=== PATIENT | female | born 1940 | race Caucasian/White ===

== ENCOUNTER 2016-12-04 16:40 | Emergency (ER) | payer MEDICARE, MEDICAID ==
[~2016-12-04 16:40] MED LIST: FELO10TA34 PO; PRO20 PO; [UNRECOGNIZED DRUG - CODE] PO
[2016-12-04 16:42] VITALS: BP 164/92; PULSE 79; RESP 24; O2SAT 99
--- NOTE | 2016-12-04 17:16 | DRSVH ---
PROCEDURE: X-RAY CHEST ONE VIEW, PORTABLE ([id number]) INDICATIONS: 76 year-old female with chest pain. TECHNIQUE: One view of the chest was acquired. COMPARISON: [facility], CR, XR CHEST 1VW (PORTABLE), 06/11/2016, 12:42. [facility], CR, XR CHEST 1VW (PORTABLE), 02/08/2016, 17:26. [facility], CR, CHEST 2VW, 10/07, 13:13. FINDINGS: Surgical changes and devices: None. Lungs and pleura: No pleural effusions or pneumothorax. Lungs are clear. Mediastinum: Mediastinal contours appear normal. Heart size is normal. There is aortic atheroscler osis. Bones and chest wall: No suspicious bony lesions. Overlying soft tissues appear unremarkable. IMPRESSION: No acute cardiopulmonary disease. Dictated by: Harley Redd M.D. on 12/04/2016 at 17:13 Approved by: Harley Redd M.D. on 12/04/2016 at 17:14
[2016-12-04 17:22] LABS: BASOPHILS % (AUTO) 0.4 % (0-3); EOSINOPHILS % (AUTO) 0.3 % (0-5); NEUTROPHILS % (AUTO) 60.9 % (40-74); Platelet Count 286 bil/L (150-400)
--- NOTE | 2016-12-04 17:29 | ED.REPORT ---
HPI-General Illness Date of Service Dec 04, 2016 ED Provider: Fran Weiner DO The patient is a 76 year old female with history of hypertension and depression , who presents to the emergency department complaining of feeling unwell. Her symptoms began about 6 days ago. She has experienced intermittent mild chest pains that last for a second, chills, and tremors. The patient is having a difficult time describing her symptoms. The patient was recently evaluated for episodes of dizziness, leg tingling, and confusion that last approximately 1 minute. She was seen by Dr. Stuart and had a normal EEG. The patient reports having an episode before these other symptoms began. Nursing Notes Stated Complaint: CHEST PAINS/SHAKY Chief Complaint: Chest Pain Nursing Notes Reviewed: Yes Allergies: Coded Allergies: lisinopril (Verified Allergy, Severe, swelling and hands itching, 02/08/16) Penicillins (Verified Allergy, Intermediate, RASH, 02/08/16) carvedilol (Verified Allergy, Unknown, 02/08/16) citalopram (Unverified Allergy, Unknown, 02/08/16) sertraline (Verified Allergy, Unknown, 02/08/16) Scheduled FLUoxetine-Expunged Drug, Do Not Renew! (FLUoxetine-Expunged Drug, Do Not Renew! ) 20 Mg Capsule 1 CAP.EC PO AM Felodipine-Expunged Drug, Do Not Renew! (Plendil-Expunged Drug, Do Not Renew!) 10 Mg Tab.sr.24h 10 MG PO AM Propranolol-Expunged Drug, Do Not Renew! (Propranolol [place]-Expunged Drug, Do Not Renew!) 80 Mg Capcr 80 MG PO DAILY General Time Seen by MD: 17:10 Chief Complaint Not feeling well Hx Obtained From: Patient Arrived By: Walk-in Sudden in Onset?: Yes Onset Occurred: 6 days ago Symptom Duration: Since onset Location: : Chest Quality: Painful Severity: Current: Mild Severity: Maximum: Moderate Recent Healthcare: No recent doctor visit, No recent hospitalization Similar Sx Previous: Yes Past Medical History Past Medical History Notes: Learning Support Assistant : Dr. Medina Neurologist : Dr. Brambila PCP: Dr. 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 Thoracic aortic aneurysm measured at 4.0 cm Low risk treadmill sestamibi 06/19/15 Past Surgical History Tubal ligation Thyroidectomy Cystectomy right ovary IRVING Reports: Cataract surgery, Cholecystectomy Reports: Carpal tunnel Family History Noncontributory Smoking History Never Smoker Social History Alcohol Use: Denies alcohol use Other Social History: Lives alone, Local resident Ambulatory Status Independent Review of Systems Full Review of Systems Constitutional: Reports: Chills Cardiovascular: Reports: Chest pain Neurologic: Reports: Dizziness, Shaking Complete sys rev & neg: except as marked. Physical Exam Vital Signs Vital Signs Date Time Temp Pulse Resp B/P Pulse Ox O2 Delivery O2 Flow Rate FiO2 12/04/16 17:49 70 20 153/73 100 Room Air 12/04/16 16:42 36.8 79 24 164/92 99 Room Air Initial VS: Reviewed Head / Eyes: Atraumatic, Normocephalic, PERRL ENT: Mucous membranes moist, Conjunctiva normal, No scleral icterus Neck: Supple, Non-tender, Full range of motion Respiratory: Breath sounds normal, Clear to auscultation, No respiratory distress Cardiovascular: Regular rate & rhythm, Heart sounds normal, Intact distal pulses Abdomen / GI: Soft, Non-tender, No guarding, No rebound, No distention Extremities: Vascular intact, Neuro intact, No swelling, No tenderness Skin: Warm, Dry, No cyanosis Psychiatric: Mood/affect normal, Behavior normal, Normal thought content General/Constitutional: Awake, Cooperative Neurologic: No sensory deficits Tremulous PSYCHIATRIC: emotionally labile, tearful Interpretation & Diagnostics Lab Results Interpretation Result Diagram: 12/04/16 1710 12/04/16 1710 Test 12/04/16 17:10 12/04/16 17:27 White Blood Count 7.8th/mm3 (3.8-10.1) Red Blood Count 4.84mil/mm3 (3.90-5.20) Hemoglobin 11.6g/dL (12.0-15.6) Hematocrit 36.3% (35.0-46.0) Mean Corpuscular Volume 75.0fL (81-100) Mean Corpuscular Hemoglobin 24.0pg (27.0-35.0) Mean Corpuscular Hemoglobin Concent 32.0% (32.0-37.0) Red Cell Distribution Width 15.4% (12.3-15.4) Platelet Count 286bil/L (150-400) Neutrophils (%) (Auto) 60.9% (40-74) Lymphocytes (%) (Auto) 25.0% (14-46) Monocytes (%) (Auto) 13.0% (4-12) Eosinophils (%) (Auto) 0.3% (0-5) Basophils (%) (Auto) 0.4% (0-3) Sodium Level 138mEq/L (134-144) Potassium Level 2.7mEq/L (3.5-5.2) Chloride Level 98mEq/L (97-108) Carbon Dioxide Level 18mmol/L (18-29) Blood Urea Nitrogen 14mg/dL (8-27) Creatinine 1.12mg/dL (0.57-1.00) Estimat Glomerular Filtration Rate 67mL/min (>59) Glucose Level 119mg/dL (60-99) Calcium Level 9.9mg/dL (8.5-10.1) Magnesium Level 1.9mg/dL (1.6-2.6) Total Bilirubin 0.5mg/dL (0.0-1.2) Aspartate Amino Transf (AST/SGOT) 19U/L (0-50) Alanine Aminotransferase (ALT/SGPT) 11U/L (0-32) Alkaline Phosphatase 126U/L (25-165) Troponin T < 0.010ug/L (0.0-0.011) Total Protein 6.9g/dL (6.4-8.4) Albumin 4.2g/dL (3.4-5.0) Hold Emery Top Tube Received (Received) ECG Interpretation ECG Interpretation: Sinus rhythm with a rate of 67 Time: 16:56 Interpreted by: ED physician X-Ray Chest Interpretation Chest Xray Interpretation: IMPRESSION: No acute cardiopulmonary disease. Dictated by: Harley Redd M.D. on 12/04/2016 at 17:13 Interpretation / Wet Read by: Interpret - Radiologist Re-Eval/Medical Decision Med Decision/Clinical Course Care transferred to Dr. Rodriguez Source of Hx: Old records Counseled Regarding: Diagnosis, Lab results Discharge & Departure Primary Impression: Chest pain Chest pain type: unspecified Qualified Code: R07.9 - Chest pain, unspecified Discharge Condition All VS Reviewed: Yes Condition: Stable Referrals: Solomon Salazar DO (PCP) Care Transferred to: Dr. Slack Care Transferred at: 18:01 Scribe Attestation Portions of this note were transcribed by Bel Peres. I, Dr. Weiner personally performed the history, physical exam and medical decision-making; I reviewed and confirmed the accuracy of the information in the transcribed note. Signed by: Jannette Muro, 12/04/2016 at 1800. copies to: Solomon Salazar Timothy S DO Dec 04, 2016 17:29 Bel Peres Dec 04, 2016 17:35
[2016-12-04 17:39] LABS: Magnesium 1.9 mg/dL (1.6-2.6)
[2016-12-04 17:41] LABS: TROPONIN T < 0.010 ug/L (0.0-0.011)
[2016-12-04 17:49] VITALS: BP 153/73; PULSE 70; RESP 20; O2SAT 100
[2016-12-04] MEDS ORDERED: KCl 40 mEq/D5W 500 mL 40 MEQ in IV Premix 1 EACH IV ONE (18:25)
[2016-12-04 18:50] VITALS: BP 135/79; PULSE 67; RESP 20; O2SAT 100
[2016-12-04] MEDS ORDERED: Potassium Chloride 20 mEq/15 mL 15mL Oral Soln PO ONE (19:20)
[2016-12-04 22:01] VITALS: BP 144/93; PULSE 71; RESP 20; O2SAT 99
[2016-12-04] MEDS ORDERED: ESCI5TAB PO (22:22)
[2016-12-04] MEDS ORDERED: FELO10TA3 PO (22:22)
[2016-12-04] MEDS ORDERED: ASPI81TA3 PO (22:23)
[2016-12-04] MEDS ORDERED: CHOL10008 PO (22:23)
[2016-12-04] MEDS ORDERED: METO25TA99 PO (22:23)
[2016-12-04] MEDS ORDERED: FELO5TAB4 PO (22:23)
[2016-12-05] MEDS ORDERED: POTA-62 PO (00:04)
[2016-12-05 00:26] VITALS: BP 149/83; PULSE 75; RESP 20; O2SAT 97
== END 2016-12-05 00:20 | disposition home or self-care (01) ==
LOC: SED 16:40
DX: R07.9 Chest pain, unspecified (principal); E87.6 Hypokalemia; R42 Dizziness and giddiness; I10 Essential (primary) hypertension; F32.9 Major depressive disorder, single episode, unspecified; Z88.0 Allergy status to penicillin; Z88.8 Allergy status to other drugs, medicaments and biological substances
CPT/HCPCS: 36415; 71010; 80053; 83735; 84132; 84484; 85025; 93005; 96374; 96375; 99285; J2060; J3480